=== PATIENT | male | born 1950 | race Caucasian/White ===

== ENCOUNTER 2017-04-05 09:41 | Day surgery (SDC) | payer MEDICARE ==
[2017-03-31 11:41] VITALS: BMI 32.4
[2017-04-05] MEDS ORDERED: HYDROmorphone 0.5 mg/0.5 ml ISec IVP PRN (10:55)
[2017-04-05] MEDS ORDERED: ceFAZolin IV 2 gm in Dextrose 1 GM/50 ML BAG IVPB ONE (11:03)
[2017-04-05] MEDS ORDERED: Bupivacaine-Epi 0.25%-1:200,000 PF Inj ONE (11:03)
[2017-04-05] MEDS ORDERED: Propofol 10 mg/ml Inj (20 ML) ONE ×2 (11:10→11:39)
[2017-04-05] MEDS ORDERED: Lactated Ringer's 1,000 ML IV ONE (11:17)
[2017-04-05] MEDS ORDERED: Lidocaine 1% Inj (20ml) ONE (11:35)
--- NOTE | 2017-04-05 12:01 | PCM.SURG1 ---
Surgeon's Initial Post Op Note - Surgeon's Notes Surgeon: Dr. Horn Pricing Specialist: Dr. Rangel PGY-3, [facility] OMS-III Type of Anesthesia: IV Sedation, Local Pre-Operative Diagnosis: Right flank lesion Operative Findings: Right flank lipoma Post-Operative Diagnosis: Right flank lesion Operation Performed: Excision of right flank lesion Specimen/Specimens Removed: lipoma Estimated Blood Loss: EBL {In ML}: 5 Blood Products Given: N/A Drains Used: No Drains Post-Op Condition: Good Date of Surgery/Procedure: 04/05/17 Time of Surgery/Procedure: 12:01
[2017-04-05 12:13] VITALS: TEMP 97
[2017-04-05 13:28] VITALS: BP 124/67; PULSE 52; RESP 18; O2SAT 100
--- NOTE | 2017-04-06 08:32 | OP ---
PROCEDURE DATE: 04/05/2017 PREOPERATIVE DIAGNOSIS: Multiple lipomas, abdominal wall. PROCEDURE CARRIED OUT: Excision of 3 cm lipoma, right upper abdominal wall. SURGEON: Juan A Horn Jr., MD ASSISTANTS: Claire, . ANESTHESIOLOGIST: Mr. Gaurav CRNA HISTORY OF PRESENT ILLNESS: The patient is a middle-aged man, who presents with multiple lipomas to the abdominal wall, which is increasing in size. OPERATIVE FINDINGS: One was biopsied; one in the right upper quadrant, which he says was the most troublesome. It was excised, submitted for examination in formalin. The wound was then approximated and closed with subcuticular closure and Steri-Strips. BLOOD LOSS FOR THE PROCEDURE: Minimal. OPERATION CARRIED OUT: Excision of 3 cm lipoma, abdominal wall. Juan A Horn Jr., MD cc: Dr. Sylvia Reyez
== END 2017-04-05 13:29 | disposition home or self-care (01) ==
LOC: C.SDS 09:41
PROVIDERS: ATTEND Surgery Vascular Surgery
DX: D17.1 Benign lipomatous neoplasm of skin and subcutaneous tissue of trunk (principal)
CPT/HCPCS: 11403; 88304; J0690; J2405; J2704; J3010; J7120

== ENCOUNTER 2018-09-28 09:31 | Outpatient (CLI) | payer MEDICARE | END 2018-09-28 09:32 | disposition home or self-care (01) | LOC: C.LAB 09:31 | DX: C61 Malignant neoplasm of prostate (principal) ==